=== PATIENT | female | born 1950 | race Caucasian/White ===

== ENCOUNTER → 2017-04-24 | Day surgery (SDC) | payer MEDICARE ==
[~2017-04-24] MED LIST: APREPITANT 40 MG CAP ONE; FUROSEMIDE 20 MG/2 ML VIAL ONE; GENTAMICIN SULFATE 80 MG/2 ML VIAL ONE; LACTATED RINGER'S 1000 ML INJ 1,000 ML ONE; MIDAZOLAM HCL 2 MG/2 ML VIAL ONE; NS 100 ML (PAB BAG) 100 ML IV ONE; ONDANSETRON HCL 4 MG/2 ML VIAL IV PUSH ONE; PROMETHAZINE INJ 25 MG/ML VIAL ONE; PROPOFOL 100 MG/10 ML INJ IV ONE
--- NOTE | 2017-04-24 09:00 | TN ---
cc: KACIE SCALES M.D. DATE OF SURGERY: 04/24/2017 PREOPERATIVE DIAGNOSIS Distal left ureteral calculus (ICD-10 code N20.1). POSTOPERATIVE DIAGNOSIS Distal left ureteral calculus (ICD-10 code N20.1). PROCEDURE PERFORMED Cystourethroscopy with left ureteroscopic holmium laser lithotripsy and stone basket manipulation (CPT code 07342). INDICATIONS Ms. Richard is a 66-year-old woman with a symptomatic distal left ureteral calculus, who presents now for definitive treatment, symptomatic approximately 5 mm distal left ureteral calculus, who presents now for treatment. FINDINGS Normal urethra, ureteral orifice is normal size, shape and position, effluxing clear urine bilaterally. No taylor tumors, abnormal mucosa or calcifications identified. No trabeculation, diverticuli or cellules of the bladder. The ureteroscopy on the left showed a distal irregularly shaped obstructing approximately 5 mm stone. Proximal to that the ureter was dilated with some evidence of previous stone passage. PROCEDURE The procedure as well as the risks and benefits were explained to the patient and informed consent was obtained. The patient was taken to the major operative theater where she was placed in supine position. The patient was identified as well as the operative site. Stickney time-out was performed in standard fashion. At this time general anesthetic and prophylactic intravenous antibiotics consisting of gentamicin 80 mg was administered. After adequate anesthetic she was placed in low dorsolithotomy position, prepped and draped in the usual sterile fashion. At this time, a 22.5 [place] obturator and sheath were placed into the bladder. The obturator was removed and a 30 degree lens cystoscope was used. The bladder was systematically surveyed. Attention was directed to the left ureteral orifice which was somewhat difficult to visualize due to her anatomy but without too much difficulty, able to get a 0.035 inch hybrid guidewire into the ureteral orifice and up the ureter under fluoroscopic guidance bypassing the stone without difficulty. A second 0.035 inch Farfan guidewire was used as a working wire. Then the cystoscope was removed. The safety wire was attached to the drape. The working wire was back loaded onto a semi-rigid mini ureteroscope and the scope was then placed into the distal ureter where the stone was identified. Then using a 365 micron holmium laser fiber at a setting of 0.2 joules and 40 Hz, the stone was pulverized into multiple small pieces and then using a zero-tip Nintinol basket several passes were used to remove all of the stones. The scope was then passed as far as possible to make sure there was no additional stones, trauma or injury. After confirming this the ureteroscope was removed and the cystoscope was placed back into the bladder and the stones that were dropped into the bladder were then flushed out and sent for crystallographic analysis. Attention was directed to the ureteral orifices and appeared to be effluxing mildly hematuric urine but was patent. Decision was made not to leave the stent. At this time the safety wire was removed and the bladder was decompressed and the cystoscope was removed. The patient tolerated the procedure well, emerged from anesthetic without difficulty and transferred to the recovery room in stable condition to be discharged home when criteria is met. There are no obvious complications. MD ANTHONY Gómez/TEN /8:35 AM /8:47 AM
== END | disposition home or self-care (01) ==
LOC: ESDC 06:09
PROVIDERS: ATTEND Urology
DX: N20.1 Calculus of ureter (principal)
CPT/HCPCS: 00918; 52353; 76000; C1769; J1580; J1940; J2250; J2405; J2550; J3010; J7120; J8501